=== PATIENT | female | born 1975 | race Caucasian/White ===

== ENCOUNTER 2017-07-26 05:00 | Emergency (ER) | payer SELFPAY ==
[~2017-07-26] VITALS: Ht 170.2 cm; Wt 82.4 kg
[2017-07-26] MEDS ORDERED: LIDOCAINE 1%-EPI 1:100K, 20ML SQ ONE (05:30)
[2017-07-26] MEDS ORDERED: LIDOCAINE-MPF 1%, 2ML ONE (05:31)
[2017-07-26] MEDS ORDERED: LIDOCAINE-MPF 2% ,5ML ONE (05:33)
[2017-07-26] MEDS ORDERED: CEFTRIAXONE 1,000 MG ONE (05:40)
[2017-07-26] MEDS ORDERED: LIDOCAINE-MPF 1%, 2ML INFIL ONE (06:00)
[2017-07-26] MEDS ORDERED: CEFTRIAXONE 1,000 MG IM ONE (06:00)
[2017-07-26 06:09] VITALS: BP 123/72
== END 2017-07-26 06:12 | disposition home or self-care (01) ==
LOC: ED 06:00
DX: L03.116 Cellulitis of left lower limb (principal); L02.416 Cutaneous abscess of left lower limb; F15.129 Other stimulant abuse with intoxication, unspecified; F11.129 Opioid abuse with intoxication, unspecified
CPT/HCPCS: 10060; 99283

== ENCOUNTER 2017-12-26 01:37 | Emergency (ER) | payer SELFPAY ==
[~2017-12-26] VITALS: Ht 170.2 cm; Wt 84.1 kg
[2017-12-26 01:39] VITALS: BP 162/96
[2017-12-26] MEDS ORDERED: FAMOTIDINE 20 MG TABLET PO ONE (02:00)
[2017-12-26] MEDS ORDERED: FAMOTIDINE 20 MG TABLET ONE (02:04)
[2017-12-26] MEDS ORDERED: hydrOXyzine 50MG TABLET ONE (02:04)
== END 2017-12-26 03:38 | disposition home or self-care (01) ==
LOC: ED 01:52
DX: L03.115 Cellulitis of right lower limb (principal); B86 Scabies; R60.0 Localized edema; F17.200 Nicotine dependence, unspecified, uncomplicated
CPT/HCPCS: 93971; 99284; J7512; Q0177

== ENCOUNTER 2019-04-09 08:19 | Emergency (ER) | payer OTHER ==
[~2019-04-09] VITALS: Ht 170.2 cm; Wt 80.0 kg
[2019-04-09 08:28] VITALS: BP 147/88
--- NOTE | 2019-04-09 08:38 | NUR ---
43 y/o FEMALE PRESENTS TO ED WITH C/O JAW SWELLING. PER PT "I HAVE THIS SWELLING IN MY JAW AND THROAT FOR THE LAST FEW DAYS. I WAS AROUND A DOG AND I FELT THE SWELLING. THEN IT WENT AWAY. THEN I IWAS AROUND ANOTHER DOG AND IT CAME BACK. I TOOK BENADRYL BECAUSE I THOUGHT I WAS ALLERGIC AND IT DIDN'T HELP. I ALSO HAVE A BROKEN TOOTH ON THE LOWER LEFT SIDE THAT HAS BEEN BROKEN FOR A FEW WEEKS. I DON'T THINK IT'S A TOOTH PROBLEM." NADN. PT ABLE TO SPEAK IN FULL SENTENCES WITHOUT DISTRESS. NO S/SX OF DIFFICULTY BREATHING. FRIEND BEDSIDE.
[2019-04-09] MEDS ORDERED: AMPICILLIN/SULBACTAM 3 GM in SODIUM CHLORIDE 0.9% 100 ML IV ONE (09:00)
[2019-04-09] MEDS ORDERED: SODIUM CHLORIDE FLUSH 10ML SYR IVF ONE (09:00)
[2019-04-09 09:23] LABS: MEAN CORPUSCULAR HEMOGLOBIN 26.7 pg (27.0-34.8); MEAN CORPUSCULAR HGB CONC 32.7 g/dL (32.4-35.8); MEAN CORPUSCULAR VOLUME 81.6 fL (80-100); MEAN PLATELET VOLUME 7.8 fL (7.4-10.4); PLATELET COUNT 357 x10^3/uL (130-400); RED CELL DISTRIBUTION WIDTH 14.9 % (9.6-15.2)
[2019-04-09] MEDS ORDERED: KETOROLAC 30 MG/1 ML IVPush ONE (09:30)
[2019-04-09 09:32] LABS: ALBUMIN 2.6 g/dL (3.4-5.0); ANION GAP 7 mmol/L (5-15); CALCIUM 8.4 mg/dL (8.5-10.1); CHLORIDE 101 mmol/L (98-107)
[2019-04-09 09:57] LABS: MD YES
[2019-04-09 09:59] LABS: BAND#(MANUAL) 0.21 x10^3/uL; BANDS%(MANUAL) 1 % (0-7); LYMPH#(MANUAL) 2.56 x10^3/uL (1-3.4); LYMPHS% (MANUAL) 12 % (22-44)
[2019-04-09 10:00] LABS: MONOS#(MANUAL) 1.28 x10^3/uL (0.3-2.7); MONOS% (MANUAL) 6 % (2-9); SEGS% (MANUAL) 81 % (42-75)
[2019-04-09 10:01] LABS: <PLATELET ESTIMATE> ADEQUATE; <PLT MORPHOLOGY> NORMAL PLT MORPH; <RBC MORPHOLOGY> NORMAL
[2019-04-09] MEDS ORDERED: OMNIPAQUE 350 MG/ML, 100ML BOTTLE ONE (10:22)
--- NOTE | 2019-04-09 10:26 | NUR ---
PT RETURNED FROM CT AT THIS TIME.
[2019-04-09] MEDS ORDERED: SODIUM CHLORIDE 0.9% 1,000 ML IV ONE (11:02)
[2019-04-09] MEDS ORDERED: KETOROLAC 30 MG/1 ML ONE (11:07)
[2019-04-09] MEDS ORDERED: SODIUM CHLORIDE FLUSH 10ML SYR IVF PRN (11:30)
[2019-04-09] MEDS ORDERED: SODIUM CHLORIDE 0.9% 1,000 ML IV SCH (12:09)
[2019-04-09] MEDS ORDERED: ONDANSETRON 2MG/ML, 2ML IVPush PRN (12:30)
[2019-04-09] MEDS ORDERED: HYDROcodone/APAP 5/325 TABLET PO PRN (12:30)
[2019-04-09] MEDS ORDERED: AMPICILLIN/SULBACTAM 3 GM in SODIUM CHLORIDE 0.9% 100 ML IV SCH (12:30)
[2019-04-09] MEDS ORDERED: BISACODYL 10 MG SUPP PR PRN (12:30)
[2019-04-09] MEDS ORDERED: VANCOMYCIN PMX 1GM/200ML 200 ML IV ONE (12:30)
[2019-04-09] MEDS ORDERED: morphine SULFATE 10 MG/ML, 1ML IVPush PRN (12:30)
[2019-04-09] MEDS ORDERED: POLYETHYLENE GLYCOL 17 GM PACKET PO PRN (12:30)
[2019-04-09] MEDS ORDERED: ACETAMINOPHEN 325 MG TABLET PO PRN (12:30)
[2019-04-09] MEDS ORDERED: DOCUSATE 100 MG CAPSULE PO PRN (12:30)
[2019-04-09] MEDS ORDERED: ENOXAPARIN 30 MG/0.3 ML SQ SCH (12:30)
[2019-04-09] MEDS ORDERED: LORazepam 2 MG/ML, 1ML IVPush PRN (12:30)
[2019-04-09] MEDS ORDERED: VANCOMYCIN PER PHARMACY MC PRN (12:30)
[2019-04-09] MEDS ORDERED: DEXAMETHASONE 4 MG/ML, 1ML IVPush ONE (12:30)
--- NOTE | 2019-04-09 13:32 | NUR ---
PT AGITATED, STATES "I WANT TO GO. TAKE THIS OUT," INDICATING HER IV. PT STATES THAT SHE DOES NOT WANT HER BLOOD DRAWN, SHE IS AFRAID BECAUSE ONE PROVIDER MENTIONED A POSSIBLE TRACHEOSTOMY WORST CASE SCENARIO TREATMENT, AND THAT SHE WANTS METHADONE TODAY BEFORE SHE BEGINS TO WITHDRAW. DEFTU NOTIFIED AND UPDATED. IN TO TALK WITH PATIENT AT THIS TIME.
--- NOTE | 2019-04-09 13:47 | NUR ---
ICU PHYSICIAN AT BEDSIDE TO TALK WITH PATIENT. ERP AT BEDSIDE. THIS NURSE AT BEDSIDE. PT INSISTENT ON LEAVING. PT EDUCATED ON POSSIBLE CONSEQUENCES, INCLUDING . PT GIVEN EDUCATION ON DISEASE PROCESS. ALL QUESTIONS ADDRESSED. PT NOTIFIED THAT IF SHE STAYS THERE IS A BED READY IN THE ICU AT THIS TIME, PAIN MEDICATIONS OFFERED. FRIEND AT BEDSIDE NODDING OFF AND OBVIOUSLY INTOXICATED. PT UNABLE TO BE REASONED WITH. STATES "I'M GETTING BETTER". PT GIVEN ANTIBIOTIC PRESCRIPTION, AND DISCHARGE INSTRUCTIONS. VERBALIZES UNDERSTANDING. INSTRUCTED TO GET HER ATB TODAY AND START THE COURSE IMMEDIATELY, VERBALIZES UNDERSTANDING, STATES THAT SHE WILL DO INSTRUCTED. PT ALSO STATES THAT IF SHE GETS WORSE SHE WILL RETURN. EDUCATED ON SEPSIS, AND GENERAL S/S TO WATCH FOR. PT SIGNED AMA PAPERWORK, DISCHARGED THROUGH FRONT.
== END 2019-04-09 14:23 | disposition left against medical advice (07) ==
LOC: ED 08:55 → EDIP 11:02 → UNDOADMIN 11:02
DX: F11.20 Opioid dependence, uncomplicated (principal); K12.2 Cellulitis and abscess of mouth
CPT/HCPCS: 36415; 70100; 70491; 80048; 80074; 82040; 83605; 84145; 84703; 85025; 87081; 87521; 87806; 87880; 96365; 96375; 99285; J0295; J1885; Q9967; 96374; G0475